=== PATIENT | female | born 1975 | race Caucasian/White ===

== ENCOUNTER 2017-04-13 14:28 | Emergency (ER) | payer MEDICAID, OTHER ==
[2017-04-13 14:50] VITALS: BMI 28.2
[2017-04-13 14:53] VITALS: RESP 18; TEMP 98.2; O2SAT 100
--- NOTE | 2017-04-13 15:00 | ED PDOC ---
Arrival/HPI - General Chief Complaint: Anxiety Time Seen by Provider: 04/13/17 14:38 Historian: Patient - History of Present Illness Narrative History of Present Illness (Text): 04/13/17 14:57 Christelle Prakash is a 41 year old female, whose past medical history include kidney stone and hypothyroidism, depression, who presents to the ED accompanied by family complaining of shortness of breath and chest pain since 8 am this morning. Patient stated she woke up this morning thinking about her , and became sad, tearful. She later developed shortness of breath and chest pressure pain. Patient admits feeling depressed since the of last year. PERC negative for PE. Quality: Pressure Context: Home Past Medical History - Provider Review Nursing Documentation Reviewed: Yes - Infectious Disease Hx of Infectious Diseases: None - Tetanus Immunization Tetanus Immunization: Unknown - Past Medical History Past Medical History: No Previous - Cardiac Hx Cardiac Disorders: No - Pulmonary Hx Respiratory Disorders: No - Neurological Hx Neurological Disorder: No - HEENT Hx HEENT Disorder: No - Renal Hx Renal Disorder: Yes (RENAL COLIC) Hx Kidney Stones: Yes - Endocrine/Metabolic Hx Endocrine Disorders: Yes Hx Hypothyroidism: Yes (TOTAL THYROIDECTOMY) - Hematological/Oncological Hx Blood Disorders: No - Integumentary Hx Dermatological Disorder: No - Musculoskeletal/Rheumatological Hx Musculoskeletal Disorders: No Hx Falls: No - Gastrointestinal Hx Gastrointestinal Disorders: Yes (SIGMOID DIVERTICULITIS 03-29-16) Hx Gastroesophageal Reflux: Yes Other/Comment: CONSTIPATION - Genitourinary/Gynecological Hx Genitourinary Disorders: Yes (CHRONIC VAGINAL DISCHARGE) - Psychiatric Hx Psychophysiologic Disorder: No Hx Substance Use: No - Surgical History Hx Appendectomy: Yes - Anesthesia Hx Anesthesia: Yes Hx Anesthesia Reactions: No Hx Malignant Hyperthermia: No - Suicidal Assessment Feels Threatened In Home Enviroment: No Family/Social History - Physician Review Nursing Documentation Reviewed: Yes Family/Social History: Other (non-contributory) Smoking Status: Never Smoked Hx Alcohol Use: No Hx Substance Use: No Hx Substance Use Treatment: No Allergies/Home Meds Allergies/Adverse Reactions: Allergies No Known Allergies Allergy (Verified 03/29/16 11:56) Home Medications: Home Meds Medication Instructions Recorded Confirmed Levothyroxine [Synthroid] 175 mcg PO DAILY 07/26/15 04/13/17 Review of Systems - Review of Systems Constitutional: Normal. absent: Fatigue, Weight Change, Fevers Eyes: Normal ENT: Normal Respiratory: SOB. absent: Cough, Sputum, Wheezing Cardiovascular: Normal, Chest Pain. absent: Palpitations, Edema, Calf Pain Gastrointestinal: Normal. absent: Abdominal Pain, Nausea, Vomiting Genitourinary Female: Normal. absent: Dysuria, Frequency, Hematuria Musculoskeletal: Normal Skin: Normal Neurological: Normal. absent: Headache, Dizziness Endocrine: Normal Hemo/Lymphatic: Normal Psychiatric: Anxiety, Depression, Other (denies HI, hallucination, or paranoia) . absent: Suicidal Ideation Physical Exam Vital Signs Temp Pulse Resp BP Pulse Ox 04/13/17 14:51 98.2 F 75 18 144/89 100 Temperature: Afebrile Blood Pressure: Normal Pulse: Regular Respiratory Rate: Normal Appearance: Positive for: Well-Appearing, Non-Toxic, Comfortable Pain Distress: None Mental Status: Positive for: Alert and Oriented X 3 - Systems Exam Head: Present: Atraumatic, Normocephalic Pupils: Present: PERRL Extroacular Muscles: Present: EOMI Conjunctiva: Present: Normal Mouth: Present: Moist Mucous Membranes Neck: Present: Normal Range of Motion Respiratory/Chest: Present: Clear to Auscultation, Good Air Exchange. No: Respiratory Distress, Accessory Muscle Use Cardiovascular: Present: Regular Rate and Rhythm, Normal S1, S2. No: Murmurs Abdomen: Present: Normal Bowel Sounds. No: Tenderness, Distention, Peritoneal Signs Back: Present: Normal Inspection Upper Extremity: Present: Normal Inspection, Normal ROM, NORMAL PULSES, Neurovascularly Intact, Capillary Refill < 2s. No: Cyanosis, Edema Lower Extremity: Present: Normal Inspection, NORMAL PULSES, Normal ROM, Neurovascularly Intact, Capillary Refill < 2 s. No: Edema Neurological: Present: GCS=15, CN II-XII Intact, Speech Normal, Motor Func Grossly Intact, Normal Sensory Function, Normal Cerebellar Funct, Gait Normal, Memory Normal Skin: Present: Warm, Dry, Normal Color. No: Rashes Psychiatric: Present: Alert, Oriented x 3, Depressed Mood. No: Suicidal Ideation, Homicidal Ideation, Delusional, Hallucinations, Intoxicated Medical Decision Making ED Course and Treatment: 04/13/17 16:51 Patient refused to be evaluated by Psychiatrist. Patient denies SI, or HI. Patient wishes to be discharged home. Family member at at bedside. Re-evaluation. Patient feels better. Discussed results and plan with patient who expresses understanding. All questions answered and there is agreement with the plan to discharge home with instructions. Patient stable for discharge. Return if symptoms persist or worsen. Patient was [facility] to [facility] for her feeling of sadness. Re-evaluation Time: 16:54 Reassessment Condition: Re-examined, Improved - Lab Interpretations Lab Results: 04/13/17 15:25 04/13/17 15:25 Lab Results 04/13/17 16:00: Urine Color Straw, Urine Appearance Sl cloudy, Urine pH 7.5, Ur Specific [place] 1.010, Urine Protein Negative, Urine Glucose (UA) Negative, Urine Ketones Negative, Urine Blood Trace-lysed H, Urine Nitrate Negative, Urine Bilirubin Negative, Urine Urobilinogen 0.2, Ur Leukocyte Esterase Moderate H, Urine RBC 0 - 2, Urine WBC 10 - 15, Ur Epithelial Cells 6 - 8, Urine Bacteria Mod, Urine HCG, Qual Negative 04/13/17 15:25: Alcohol, Quantitative < 10 04/13/17 15:25: Salicylates < 1 L, Acetaminophen < 10.0 L 04/13/17 15:25: Sodium 142, Potassium 4.5, Chloride 108 H, Carbon Dioxide 20 L, Anion Gap 19, BUN 10, Creatinine 0.7, Est GFR ( Amer) > 60, Est GFR (Non- Af Amer) > 60, Random Glucose 90, Calcium 9.3, Magnesium 2.1, Total Bilirubin 0.4, AST 24, ALT 29, Alkaline Phosphatase 100, Total Protein 8.0, Albumin 4.7, Globulin 3.4, Albumin/Globulin Ratio 1.4 04/13/17 15:25: WBC 6.5 D, RBC 4.73, Hgb 12.7, Hct 37.7, MCV 79.7 L, MCH 26.8, MCHC 33.7, RDW 14.5, Plt Count 244, MPV 9.1, Gran % 28.2 L, Lymph % (Auto) 62.7 H, [place] % (Auto) 6.5 H, Eos % (Auto) 1.4 L, Baso % (Auto) 1.2, Gran # 1.84, Lymph # 4.1 H, [place] # 0.4, Eos # 0.1, Baso # 0.08 I have reviewed the lab results: Yes Interpretation: Abnormal lab values (acute cystitis) - RAD Interpretation Narrative RAD Interpretations (Text): 04/13/17 16:43 Chest x-rays: NAD Radiology Orders: 04/13/17 15:02 CHEST PORTABLE [RAD] Stat - EKG Interpretation Interpreted by ED Physician: Yes (NSR @ 68 bpm. Normal interval) Type: 12 lead EKG Comparison: No previous EKG avail. - Medication Orders Current Medication Orders: Discontinued Medications Alprazolam (Xanax) 0.5 mg PO STAT STA PRN Reason: Protocol Stop: 04/13/17 15:04 Last Admin: 04/13/17 15:56 Dose: 0.5 mg Disposition/Present on Arrival - Present on Arrival Any Indicators Present on Arrival: No History of DVT/PE: No History of Uncontrolled Diabetes: No Urinary Catheter: No History of Decub. Ulcer: No History Surgical Site Infection Following: None - Disposition Have Diagnosis and Disposition been Completed?: Yes Diagnosis: Cystitis, Shortness of breath, Non-cardiac chest pain, Feeling anxious Disposition: HOME/ ROUTINE Disposition Time: 16:56 Patient Plan: Discharge Condition: GOOD Discharge Instructions (ExitCare): Chest Pain (ED) Additional Instructions: Call clinics for follow up visit in 1-2 days. Take medication as instructed. Return to emergency if symptoms worsen. Prescriptions: Cephalexin [cephalexin] 500 mg PO BID #14 cap Referrals: Gonsalo Denise MD [Primary Care Provider] - Follow up with primary [facility] [Outside] - Follow up with primary [facility] [Outside] - Follow up with primary Forms: [employer] (Austrian)
[2017-04-13 15:43] LABS: BASO # 0.08 K/mm3 (0.0-2.0); BASO % 1.2 % (0.0-3.0); EOS # 0.1 (0.0-0.7); EOS % 1.4 % (1.5-5.0); GRAN # 1.84 (1.4-6.5); GRAN % 28.2 % (50.0-68.0); HEMATOCRIT 37.7 % (36.0-48.0); LYMPH # 4.1 (1.2-3.4); LYMPH % 62.7 % (22.0-35.0); MEAN CELL VOLUME 79.7 fl (80.0-105.0); MEAN CORPUSCULAR HEMOGLOBIN 26.8 pg (25.0-35.0); MEAN CORPUSCULAR HGB CONC 33.7 g/dl (31.0-37.0); MEAN PLATELET VOLUME 9.1 fl (7.0-11.0); MONO # 0.4 (0.1-0.6); MONO % 6.5 % (1.0-6.0); RED CELL DISTRIBUTION WIDTH 14.5 % (11.5-14.5); WHITE BLOOD COUNT 6.5 10^3/ul (4.5-11.0)
[2017-04-13 15:52] LABS: ALB/GLOB RATIO 1.4 (1.1-1.8); ALKALINE PHOSPHATASE 100 U/L (38-126); ALT/SGPT 29 U/L (7-56); AST/SGOT 24 U/L (14-36); BILIRUBIN,TOTAL 0.4 mg/dL (0.2-1.3); BLOOD UREA NITROGEN 10 mg/dL (7-21); CALCIUM 9.3 mg/dL (8.4-10.5); CARBON DIOXIDE 20 mmol/L (21-33); CHLORIDE 108 mmol/L (98-107); GFR AFRICAN-AMERICAN > 60; GLUCOSE,RANDOM 90 mg/dL (70-110); MAGNESIUM 2.1 mg/dL (1.7-2.2); POTASSIUM 4.5 mmol/L (3.6-5.0); SODIUM 142 mmol/L (132-148)
[2017-04-13 16:09] LABS: PH,URINE 7.5 (4.7-8.0); URINE BILIRUBIN NEGATIVE (NEGATIVE); URINE BLOOD TRACE-LYSED (NEGATIVE); URINE GLUCOSE (UA) NEGATIVE (NEGATIVE); URINE KETONE NEGATIVE (NEGATIVE); URINE LEUKOCYTE ESTERASE MODERATE Leu/uL (NEGATIVE); URINE PROTEIN NEGATIVE mg/dL (<30 mg/dL); URINE UROBILINOGEN 0.2 E.U./dL (<1 E.U./dL)
[2017-04-13 16:15] LABS: URINE APPEARANCE SL CLOUDY (CLEAR); URINE COLOR STRAW (YELLOW)
[2017-04-13 16:28] LABS: URINE BACTERIA MOD (NEG); URINE RBC 0 - 2 /hpf (0-2)
--- NOTE | 2017-04-13 17:12 | RAD ---
HISTORY: SOB COMPARISON: No prior. FINDINGS: LUNGS: No active pulmonary disease. PLEURA: No significant pleural effusion identified, no pneumothorax apparent. CARDIOVASCULAR: Normal. OSSEOUS STRUCTURES: No significant abnormalities. VISUALIZED UPPER ABDOMEN: Normal. OTHER FINDINGS: None. IMPRESSION: No acute infiltrates.
[2017-04-13 17:16] VITALS: BP 128/86; PULSE 69
--- NOTE | 2017-04-14 08:42 | CARD ---
APPROVED REPORT EKG Measurement Heart [id number] <Conclusion> Normal sinus rhythm with sinus arrhythmia Normal ECG
== END 2017-04-13 18:01 | disposition home or self-care (01) ==
LOC: ED 14:28
DX: N30.90 Cystitis, unspecified without hematuria (principal); R06.02 Shortness of breath; R07.89 Other chest pain; R45.89 Other symptoms and signs involving emotional state

== ENCOUNTER 2017-07-25 10:29 | Emergency (ER) | payer MEDICAID ==
[2017-07-25 10:39] VITALS: BMI 30.9
[2017-07-25 10:50] VITALS: RESP 18; TEMP 99
[2017-07-25] MEDS ORDERED: Sodium Chloride 0.9% 1,000 ML IV STA (10:57)
[2017-07-25 11:52] LABS: BASO # 0.01 K/mm3 (0.0-2.0); BASO % 0.4 % (0.0-3.0); EOS % 0.4 % (1.5-5.0); GRAN # 1.03 (1.4-6.5); GRAN % 37.5 % (50.0-68.0); HEMATOCRIT 36.5 % (36.0-48.0); LYMPH # 1.3 (1.2-3.4); LYMPH % 47.8 % (22.0-35.0); MEAN CELL VOLUME 79.5 fl (80.0-105.0); MEAN CORPUSCULAR HEMOGLOBIN 25.9 pg (25.0-35.0); MEAN CORPUSCULAR HGB CONC 32.6 g/dl (31.0-37.0); MEAN PLATELET VOLUME 9.7 fl (7.0-11.0); MONO # 0.4 (0.1-0.6); MONO % 13.9 % (1.0-6.0); PH,URINE 5.5 (4.7-8.0); RED CELL DISTRIBUTION WIDTH 14.1 % (11.5-14.5); URINE BILIRUBIN SMALL (NEGATIVE); URINE BLOOD LARGE (NEGATIVE); URINE GLUCOSE (UA) NEGATIVE (NEGATIVE); URINE KETONE NEGATIVE (NEGATIVE); URINE LEUKOCYTE ESTERASE TRACE Leu/uL (NEGATIVE); URINE PROTEIN 30 mg/dL (<30 mg/dL); URINE UROBILINOGEN 0.2 E.U./dL (<1 E.U./dL)
[2017-07-25 11:54] LABS: WHITE BLOOD COUNT 2.7 10^3/ul (4.5-11.0)
[2017-07-25 11:55] LABS: URINE APPEARANCE CLEAR (CLEAR); URINE COLOR YELLOW (YELLOW)
--- NOTE | 2017-07-25 11:55 | ED PDOC ---
Arrival/HPI - General Chief Complaint: Flu-like Symptoms Time Seen by Provider: 07/25/17 10:55 Historian: Patient - History of Present Illness Narrative History of Present Illness (Text): 07/25/17 10:54 A 42 year old female, whose past medical history includes thyroid disease and vertigo, Bengali speaking translated by patient's sister, presents to the emergency department complaining of dizziness and vomiting all night. Patient reports 3-5 episodes of vomiting, as well as 4 episodes of diarrhea. Patient mentions dizziness worsens when turning head. States also experiencing fever yesterday but did not take temperature, and had chills. Patient denies any abdominal pain(although upon palpation, patient experiences slight pain), vision changes, or any other complaints at this time. Also, she does states that her daughter has a stomach virus. No PMD 07/25/17 12:20 Past Medical History - Provider Review Nursing Documentation Reviewed: Yes - Infectious Disease Hx of Infectious Diseases: None - Tetanus Immunization Tetanus Immunization: Unknown - Past Medical History Past Medical History: No Previous - Cardiac Hx Cardiac Disorders: No - Pulmonary Hx Respiratory Disorders: No - Neurological Hx Neurological Disorder: No - HEENT Hx HEENT Disorder: No - Renal Hx Renal Disorder: Yes (RENAL COLIC) Hx Kidney Stones: Yes - Endocrine/Metabolic Hx Endocrine Disorders: Yes Hx Hypothyroidism: Yes (TOTAL THYROIDECTOMY) - Hematological/Oncological Hx Blood Disorders: No - Integumentary Hx Dermatological Disorder: No - Musculoskeletal/Rheumatological Hx Musculoskeletal Disorders: No Hx Falls: No - Gastrointestinal Hx Gastrointestinal Disorders: Yes (SIGMOID DIVERTICULITIS 03-29-16) Hx Gastroesophageal Reflux: Yes Other/Comment: CONSTIPATION - Genitourinary/Gynecological Hx Genitourinary Disorders: Yes (CHRONIC VAGINAL DISCHARGE) - Psychiatric Hx Psychophysiologic Disorder: No Hx Substance Use: No - Surgical History Hx Appendectomy: Yes Hx Section: Yes Hx Thyroidectomy: Yes - Anesthesia Hx Anesthesia: Yes Hx Anesthesia Reactions: No Hx Malignant Hyperthermia: No - Suicidal Assessment Feels Threatened In Home Enviroment: No Family/Social History - Physician Review Nursing Documentation Reviewed: Yes Family/Social History: No Known Family HX Smoking Status: Never Smoked Hx Alcohol Use: No Hx Substance Use: No Hx Substance Use Treatment: No Allergies/Home Meds Allergies/Adverse Reactions: Allergies No Known Allergies Allergy (Verified 07/25/17 10:45) Home Medications: Home Meds Medication Instructions Recorded Confirmed Levothyroxine [Synthroid] 175 mcg PO DAILY 07/26/15 07/25/17 Topiramate 25 mg PO BID 06/08/17 07/25/17 Tramadol HCl [Ultram] 50 mg PO PRN PRN 06/08/17 07/25/17 Review of Systems - Physician Review All systems were reviewed & negative as marked: Yes - Review of Systems Constitutional: Fatigue, Fevers (had fever yesterday) Eyes: absent: Vision Changes Gastrointestinal: Diarrhea (4 episodes of diarrhea), Vomiting (3-5 episodes of vomiting). absent: Abdominal Pain Neurological: Dizziness Physical Exam Vital Signs Reviewed: Yes Vital Signs Temp Pulse Resp BP Pulse Ox 07/25/17 10:49 99.0 F 80 18 123/80 100 Temperature: Afebrile Blood Pressure: Normal Pulse: Regular Respiratory Rate: Normal Appearance: Positive for: Well-Appearing Pain Distress: None Mental Status: Positive for: Alert and Oriented X 3 - Systems Exam Head: Present: Atraumatic, Normocephalic Pupils: Present: PERRL Extroacular Muscles: Present: EOMI Conjunctiva: Present: Normal Mouth: Present: Moist Mucous Membranes Neck: Present: Normal Range of Motion Respiratory/Chest: Present: Clear to Auscultation, Good Air Exchange. No: Respiratory Distress, Accessory Muscle Use Cardiovascular: Present: Regular Rate and Rhythm, Normal S1, S2. No: Murmurs Abdomen: Present: Other (mild diffused abdominal pain to epigastric and RUQ region). No: Distention, Rebound, Guarding Back: Present: Normal Inspection Upper Extremity: Present: Normal Inspection. No: Cyanosis, Edema Lower Extremity: Present: Normal Inspection. No: Edema Neurological: Present: GCS=15, CN II-XII Intact, Speech Normal Skin: Present: Warm, Dry, Normal Color. No: Rashes Psychiatric: Present: Alert, Oriented x 3, Normal Insight, Normal Concentration Medical Decision Making ED Course and Treatment: 07/25/17 10:59 Impression: 42 year old female with dizziness and vomiting. Physical exam shows patient appears fatigue, non-nystagmus; moist mucous membranes; mild diffused abdominal pain to epigastric and RUQ region, no rebound, no guarding, non- distended. Differential Diagnosis included but are not limited to: Gastroenteritis exacerbated by history of vertigo vs. Electrolyte Abnormalities vs. Food Poisoning. Plan: -- Labs -- Urinalysis -- Ativan -- Zofran -- IV Fluids -- Reassess and disposition Prior Visits: Notes and results from previous visits were reviewed. Patient was last seen in the emergency department on 04/13/2017 for shortness of breath and chest pain. Patient was d/c home. Progress Notes: pt received IV fluids, antiemetics, now tolerating PO. Mag repleted will d/c 07/25/17 12:42 - Lab Interpretations Lab Results: 07/25/17 11:35 07/25/17 11:58 Lab Results 07/25/17 11:58: Sodium 139, Potassium 3.9, Chloride 109 H, Carbon Dioxide 21, Anion Gap 13, BUN 9, Creatinine 0.7, Est GFR ( Amer) > 60, Est GFR (Non- Af Amer) > 60, Random Glucose 91, Calcium 8.3 L, Magnesium 1.6 L, Total Bilirubin 0.4, AST 17, ALT 26, Alkaline Phosphatase 68, Total Protein 6.6, Albumin 3.7, Globulin 2.9, Albumin/Globulin Ratio 1.3 07/25/17 11:35: Urine Color Yellow, Urine Appearance Clear, Urine pH 5.5, Ur Specific [place] >= 1.030, Urine Protein 30 H, Urine Glucose (UA) Negative, Urine Ketones Negative, Urine Blood Large H, Urine Nitrate Negative, Urine Bilirubin Small H, Urine Urobilinogen 0.2, Ur Leukocyte Esterase Trace H, Urine RBC Tntc, Urine WBC 2 - 5, Ur Epithelial Cells 6 - 8, Amorphous Sediment Few, Urine Bacteria Many 07/25/17 11:35: WBC 2.7 L* D, RBC 4.59, Hgb 11.9 L, Hct 36.5, MCV 79.5 L, MCH 25.9, MCHC 32.6, RDW 14.1, Plt Count 175, MPV 9.7, Gran % 37.5 L, Lymph % (Auto ) 47.8 H, [place] % (Auto) 13.9 H, Eos % (Auto) 0.4 L, Baso % (Auto) 0.4, Gran # 1.03 L, Lymph # 1.3, [place] # 0.4, Eos # 0.0, Baso # 0.01 I have reviewed the lab results: Yes - Medication Orders Current Medication Orders: Discontinued Medications Sodium Chloride (Sodium Chloride 0.9%) 1,000 mls @ 999 mls/hr IV .Q1H1M STA Stop: 07/25/17 11:57 Last Admin: 07/25/17 12:17 Dose: 999 mls/hr eMAR Start Stop Document 07/25/17 12:17 EQ (Rec: 07/25/17 12:17 EQ [facility] [id number]) Intravenous Solution Start Date 07/25/17 Start Time 12:17 Lorazepam (Ativan) 0.5 mg IVP ONCE ONE PRN Reason: Protocol Stop: 07/25/17 11:10 Last Admin: 07/25/17 12:17 Dose: 0.5 mg IVP Administration Document 07/25/17 12:17 EQ (Rec: 07/25/17 12:18 EQ [facility] [id number]) Charges for Administration # of IVP Administrations 1 Magnesium Oxide (Mag-Ox) 800 mg PO STAT STA Stop: 07/25/17 12:38 Ondansetron HCl (Zofran Inj) 4 mg IVP STAT STA Stop: 07/25/17 10:58 Last Admin: 07/25/17 12:17 Dose: 4 mg IVP Administration Document 07/25/17 12:17 EQ (Rec: 07/25/17 12:17 EQ [facility] [id number]) Charges for Administration # of IVP Administrations 1 - Scribe Statement The provider has reviewed the documentation as recorded by the Yanira Valencia Provider Scribe Attestation: All medical record entries made by the Jackibdenise were at my direction and personally dictated by me. I have reviewed the chart and agree that the record accurately reflects my personal performance of the history, physical exam, medical decision making, and the department course for this patient. I have also personally directed, reviewed, and agree with the discharge instructions and disposition. Disposition/Present on Arrival - Present on Arrival Any Indicators Present on Arrival: No History of DVT/PE: No History of Uncontrolled Diabetes: No Urinary Catheter: No History of Decub. Ulcer: No History Surgical Site Infection Following: None - Disposition Have Diagnosis and Disposition been Completed?: Yes Diagnosis: Gastroenteritis Disposition: HOME/ ROUTINE Disposition Time: 12:42 Patient Plan: Discharge Patient Problems: Current Active Problems Problem Status Onset Gastroenteritis Acute Condition: GOOD Discharge Instructions (ExitCare): Gastroenteritis (ED) Prescriptions: Loperamide [Loperamide HCl] 2 mg PO Q8 #14 cap Ondansetron [Zofran] 4 mg PO Q8H PRN #12 tab PRN Reason: Nausea/Vomiting Forms: [employer] (Vietnamese)
[2017-07-25 11:58] LABS: URINE BACTERIA MANY (NEG); URINE RBC TNTC /hpf (0-2)
[2017-07-25 12:00] LABS: URINE AMORPHOUS SEDIMENT FEW
[2017-07-25 12:33] LABS: ALB/GLOB RATIO 1.3 (1.1-1.8); ALKALINE PHOSPHATASE 68 U/L (38-126); ALT/SGPT 26 U/L (7-56); AST/SGOT 17 U/L (14-36); BILIRUBIN,TOTAL 0.4 mg/dL (0.2-1.3); BLOOD UREA NITROGEN 9 mg/dL (7-21); CALCIUM 8.3 mg/dL (8.4-10.5); CARBON DIOXIDE 21 mmol/L (21-33); CHLORIDE 109 mmol/L (98-107); GFR AFRICAN-AMERICAN > 60; GLUCOSE,RANDOM 91 mg/dL (70-110); MAGNESIUM 1.6 mg/dL (1.7-2.2); POTASSIUM 3.9 mmol/L (3.6-5.0); SODIUM 139 mmol/L (132-148); TOTAL PROTEIN 6.6 g/dL (5.8-8.3)
[2017-07-25] MEDS ORDERED: Magnesium Oxide 400 mg Tab UD PO STA (12:37)
[2017-07-25 13:12] VITALS: BP 117/78; PULSE 79; O2SAT 98
== END 2017-07-25 13:15 | disposition home or self-care (01) ==
LOC: ED 10:29
DX: K52.9 Noninfective gastroenteritis and colitis, unspecified (principal); E03.9 Hypothyroidism, unspecified
CPT/HCPCS: 80053; 81001; 83735; 85025; 87086; 96374; 96375; 99284; J2060; J2405; J7040

== ENCOUNTER 2017-09-20 14:25 | Emergency (ER) | payer MEDICAID ==
[2017-09-20 14:26] VITALS: BMI 30.9
[2017-09-20 14:34] VITALS: TEMP 98.8; O2SAT 99
[2017-09-20 16:26] VITALS: RESP 18
[2017-09-20 16:36] LABS: BASO # 0.04 K/mm3 (0.0-2.0); BASO % 0.7 % (0.0-3.0); EOS # 0.1 (0.0-0.7); EOS % 1.3 % (1.5-5.0); GRAN % 36.5 % (50.0-68.0); HEMOGLOBIN 11.7 g/dL (12.0-16.0); LYMPH % 54.6 % (22.0-35.0); MEAN CELL VOLUME 79.7 fl (80.0-105.0); MEAN CORPUSCULAR HEMOGLOBIN 25.8 pg (25.0-35.0); MEAN CORPUSCULAR HGB CONC 32.3 g/dl (31.0-37.0); MEAN PLATELET VOLUME 9.2 fl (7.0-11.0); MONO # 0.4 (0.1-0.6); MONO % 6.9 % (1.0-6.0); RBC 4.54 10^6/uL (3.5-6.1); RED CELL DISTRIBUTION WIDTH 15.1 % (11.5-14.5); WHITE BLOOD COUNT 5.5 10^3/ul (4.5-11.0)
[2017-09-20 16:45] LABS: ALB/GLOB RATIO 1.3 (1.1-1.8); ALBUMIN 4.2 g/dL (3.0-4.8); ALT/SGPT 18 U/L (7-56); AST/SGOT 26 U/L (14-36); BLOOD UREA NITROGEN 8 mg/dL (7-21); CALCIUM 8.9 mg/dL (8.4-10.5); GFR AFRICAN-AMERICAN > 60; GFR NON-AFRICAN AMERICAN > 60; MAGNESIUM 2.2 mg/dL (1.7-2.2)
[2017-09-20 16:56] LABS: TROPONIN I < 0.01 ng/mL
[2017-09-20] MEDS ORDERED: DiphenhydrAMINE 50 mg/ml Inj IVP STA (16:58)
[2017-09-20 17:09] LABS: D DIMER < 200 ng/mL (0-243); INR 0.96 (0.93-1.08); PARTIAL THROMBOPLASTIN TIME 29.9 Seconds (25.1-36.5); PROTHROMBIN TIME 10.9 SECONDS (9.4-12.5)
--- NOTE | 2017-09-20 17:48 | ED PDOC ---
Arrival/HPI - General Chief Complaint: Headache Time Seen by Provider: 09/20/17 14:45 Historian: Patient - History of Present Illness Narrative History of Present Illness (Text): 09/20/17 17:44 42yo female with PMHx of hypothyroid who present with complaint of headache and chest pain. Patient states symptoms are intermittent for 6 months. States headache became worse today. Chest pain is intermittent, pressure like. States she have not taken any medication for her symptoms. Denies fever, chills, SOB, diaphoresis, dizziness, photophobia, visual changes, nausea, vomiting, focal weakness, any other complaint. Past Medical History - Provider Review Nursing Documentation Reviewed: Yes - Infectious Disease Hx of Infectious Diseases: None - Tetanus Immunization Tetanus Immunization: Unknown - Past Medical History Past Medical History: No Previous - Cardiac Hx Cardiac Disorders: No - Pulmonary Hx Respiratory Disorders: No - Neurological Hx Neurological Disorder: Yes Hx Headaches: Yes - HEENT Hx HEENT Disorder: No - Renal Hx Renal Disorder: Yes (RENAL COLIC) Hx Kidney Stones: Yes - Endocrine/Metabolic Hx Endocrine Disorders: Yes Hx Hypothyroidism: Yes (TOTAL THYROIDECTOMY) - Hematological/Oncological Hx Blood Disorders: No - Integumentary Hx Dermatological Disorder: No - Musculoskeletal/Rheumatological Hx Musculoskeletal Disorders: No Hx Falls: No - Gastrointestinal Hx Gastrointestinal Disorders: Yes (SIGMOID DIVERTICULITIS 03-29-16) Hx Gastroesophageal Reflux: Yes Other/Comment: CONSTIPATION - Genitourinary/Gynecological Hx Genitourinary Disorders: Yes (CHRONIC VAGINAL DISCHARGE) - Psychiatric Hx Psychophysiologic Disorder: No Hx Substance Use: No - Surgical History Hx Appendectomy: Yes Hx Section: Yes Hx Thyroidectomy: Yes - Anesthesia Hx Anesthesia: Yes Hx Anesthesia Reactions: No Hx Malignant Hyperthermia: No - Suicidal Assessment Feels Threatened In Home Enviroment: No Family/Social History - Physician Review Nursing Documentation Reviewed: Yes Family/Social History: Unknown Family HX Smoking Status: Never Smoked Hx Alcohol Use: No Hx Substance Use: No Hx Substance Use Treatment: No Allergies/Home Meds Allergies/Adverse Reactions: Allergies No Known Allergies Allergy (Verified 09/20/17 14:28) Home Medications: Home Meds Medication Instructions Recorded Confirmed Levothyroxine [Synthroid] 175 mcg PO DAILY 07/26/15 09/20/17 Tramadol HCl [Ultram] 50 mg PO PRN PRN 06/08/17 09/20/17 Review of Systems - Physician Review All systems were reviewed & negative as marked: Yes - Review of Systems Constitutional: Normal Eyes: Normal ENT: Normal Respiratory: Normal Cardiovascular: Chest Pain. absent: Edema, Calf Pain, BORJA, Orthopnea Gastrointestinal: Normal Genitourinary Female: Normal Musculoskeletal: Normal Skin: Normal Neurological: Normal, Headache. absent: Dizziness, Focal Weakness, Gait Changes , Speech Changes, Facial Droop Endocrine: Normal Hemo/Lymphatic: Normal Psychiatric: Normal Physical Exam Vital Signs Reviewed: Yes Vital Signs Temp Pulse Resp BP Pulse Ox 09/20/17 18:04 75 18 142/71 99 09/20/17 16:26 86 18 146/85 99 09/20/17 14:33 98.8 F 94 H 16 159/78 H 99 Temperature: Afebrile Blood Pressure: Normal Pulse: Regular Respiratory Rate: Normal Appearance: Positive for: Well-Appearing, Non-Toxic, Comfortable Pain Distress: None Mental Status: Positive for: Alert and Oriented X 3 - Systems Exam Head: Present: Atraumatic, Normocephalic Pupils: Present: PERRL Extroacular Muscles: Present: EOMI Conjunctiva: Present: Normal Mouth: Present: Moist Mucous Membranes Neck: Present: Normal Range of Motion Respiratory/Chest: Present: Clear to Auscultation, Good Air Exchange. No: Respiratory Distress, Accessory Muscle Use, Wheezes, Decreased Breath Sounds, Rales, Retracting, Rhonchi, Tachypneic Cardiovascular: Present: Regular Rate and Rhythm, Normal S1, S2. No: Murmurs Abdomen: Present: Normal Bowel Sounds. No: Tenderness, Distention, Peritoneal Signs Back: Present: Normal Inspection Upper Extremity: Present: Normal Inspection. No: Cyanosis, Edema Lower Extremity: Present: Normal Inspection. No: Edema Neurological: Present: GCS=15, CN II-XII Intact, Speech Normal, Motor Func Grossly Intact, Normal Sensory Function, Normal Cerebellar Funct, Norm Deep Tendon Reflexes, Gait Normal, Memory Normal, Normal 2Pt Descrimination, Other ( No focal neurological deficit) Skin: Present: Warm, Dry, Normal Color. No: Rashes Psychiatric: Present: Alert, Oriented x 3, Normal Insight, Normal Concentration Medical Decision Making ED Course and Treatment: 09/20/17 20:26 PT was neurologically intact in ED. Hemodynamically stable EKG NSR @87bpm Lab was unremarkable. She had UTI and was treated with Keflex Head CT - Negative All result was DW the pt. Her headache and CP resolved in ED with medication. She was DC home with Fioricet. Referred to her PMD/Cardiologists. - Lab Interpretations Lab Results: 09/20/17 16:10 09/20/17 16:10 Lab Results 09/20/17 17:50: Urine Color Yellow, Urine Appearance Turbid, Urine pH 7.5, Ur Specific [place] 1.015, Urine Protein Trace H, Urine Glucose (UA) Negative, Urine Ketones Negative, Urine Blood Small H, Urine Nitrate Negative, Urine Bilirubin Negative, Urine Urobilinogen 0.2, Ur Leukocyte Esterase Large H, Urine RBC 1 - 3, Urine WBC 5 - 10, Ur Epithelial Cells 4 - 5, Urine Bacteria Many 09/20/17 16:10: Sodium 143, Potassium 4.0, Chloride 107, Carbon Dioxide 25, Anion Gap 14, BUN 8, Creatinine 0.7, Est GFR ( Amer) > 60, Est GFR (Non- Af Amer) > 60, Random Glucose 88, Calcium 8.9, Magnesium 2.2, Total Bilirubin 0.3, AST 26, ALT 18, Alkaline Phosphatase 93, Lactate Dehydrogenase 401, Total Creatine Kinase 80, Troponin I < 0.01, Total Protein 7.5, Albumin 4.2, Globulin 3.2, Albumin/Globulin Ratio 1.3 09/20/17 16:10: PT 10.9, INR 0.96, APTT 29.9, D-Dimer, Quantitative < 200 09/20/17 16:10: WBC 5.5 D, RBC 4.54, Hgb 11.7 L, Hct 36.2, MCV 79.7 L, MCH 25.8 , MCHC 32.3, RDW 15.1 H, Plt Count 231, MPV 9.2, Gran % 36.5 L, Lymph % (Auto) 54.6 H, Saunders % (Auto) 6.9 H, Eos % (Auto) 1.3 L, Baso % (Auto) 0.7, Gran # 2.00 , Lymph # (Auto) 3.0, Saunders # (Auto) 0.4, Eos # (Auto) 0.1, Baso # (Auto) 0.04 - RAD Interpretation Radiology Orders: 09/20/17 16:57 HEAD W/O CONTRAST [CT] Stat - Medication Orders Current Medication Orders: Discontinued Medications Cephalexin Monohydrate (Keflex) 500 mg PO STAT STA PRN Reason: Protocol Stop: 09/20/17 18:26 Last Admin: 09/20/17 19:09 Dose: 500 mg Diphenhydramine HCl (Benadryl) 25 mg IVP STAT STA Stop: 09/20/17 16:59 Last Admin: 09/20/17 17:23 Dose: 25 mg IVP Administration Document 09/20/17 17:23 OCS (Rec: 09/20/17 17:23 [place] [id number]) Charges for Administration # of IVP Administrations 1 Ketorolac Tromethamine (Toradol) 30 mg IVP STAT STA Stop: 09/20/17 16:59 Last Admin: 09/20/17 17:22 Dose: 30 mg MAR Pain Assessment Document 09/20/17 17:22 OCS (Rec: 09/20/17 17:23 [place] [id number]) Pain Reassessment Is this a pain reassessment? Yes Sleep Is patient sleeping during reassessment? No Presence of Pain Presence of Pain Yes Pain Scale Used Pain Scale Used Numeric Location Pain Location Body Sole Edge Inker Machine Description Description Constant Aggravating Factors ADL's IVP Administration Document 09/20/17 17:22 OCS (Rec: 09/20/17 17:23 [place] [id number]) Charges for Administration # of IVP Administrations 1 Metoclopramide HCl (Reglan) 10 mg IVP STAT STA Stop: 09/20/17 16:59 Last Admin: 09/20/17 17:23 Dose: 10 mg IVP Administration Document 09/20/17 17:23 OCS (Rec: 09/20/17 17:23 [place] [id number]) Charges for Administration # of IVP Administrations 1 Disposition/Present on Arrival - Present on Arrival Any Indicators Present on Arrival: No History of DVT/PE: No History of Uncontrolled Diabetes: No Urinary Catheter: No History of Decub. Ulcer: No History Surgical Site Infection Following: None - Disposition Have Diagnosis and Disposition been Completed?: Yes Diagnosis: Headache, Chest pain, UTI (urinary tract infection) Disposition: HOME/ ROUTINE Disposition Time: 18:50 Patient Plan: Discharge Patient Problems: Current Active Problems Problem Status Onset Chest pain Acute Headache Acute UTI (urinary tract infection) Acute Condition: STABLE Discharge Instructions (ExitCare): Urinary Tract Infections in Adults, Headache , Adult, Chest Pain, Chest Pain (ED) Additional Instructions: Follow up with your doctor/Silk Weaver Return to ED for any new symptoms Prescriptions: Acetaminophen/Butalbital/Caf [Fioricet] 1 tab PO Q4 #10 tab Cephalexin [cephalexin] 500 mg PO TID #30 cap Referrals: Gonsalo Denise MD [Primary Care Provider] - Follow up with primary Dylan Begum MD [Staff Provider] - Follow up with primary Forms: [employer] (Greek)
[2017-09-20 18:04] VITALS: BP 142/71; PULSE 75
[2017-09-20 18:18] LABS: PH,URINE 7.5 (4.7-8.0); URINE BILIRUBIN NEGATIVE (NEGATIVE); URINE BLOOD SMALL (NEGATIVE); URINE GLUCOSE (UA) NEGATIVE (NEGATIVE); URINE LEUKOCYTE ESTERASE LARGE Leu/uL (NEGATIVE); URINE NITRATE NEGATIVE (NEGATIVE); URINE PROTEIN TRACE mg/dL (<30 mg/dL); URINE UROBILINOGEN 0.2 E.U./dL (<1 E.U./dL)
[2017-09-20 18:22] LABS: URINE APPEARANCE TURBID (CLEAR); URINE COLOR YELLOW (YELLOW)
--- NOTE | 2017-09-20 18:26 | CT ---
PROCEDURE: CT HEAD WITHOUT CONTRAST. HISTORY: headache COMPARISON: None available. TECHNIQUE: Axial computed tomography images were obtained through the head/brain without intravenous contrast. Radiation dose: Total exam DLP = 813.40 mGy-cm. This CT exam was performed using one or more of the following dose reduction techniques: Automated exposure control, adjustment of the mA and/or kV according to patient size, and/or use of iterative reconstruction technique. FINDINGS: HEMORRHAGE: No intracranial hemorrhage. BRAIN: No mass effect or edema. The cortes-white matter differentiation appears intact. Please note that MRI with diffusion imaging is more sensitive in the detection of acute ischemic event. VENTRICLES: No hydrocephalus. CALVARIUM: Unremarkable. PARANASAL SINUSES: Unremarkable as visualized. No significant inflammatory changes. MASTOID AIR CELLS: Unremarkable as visualized. No inflammatory changes. OTHER FINDINGS: None. IMPRESSION: No acute intracranial pathology identified.
[2017-09-20 18:43] LABS: URINE BACTERIA MANY (NEG)
--- NOTE | 2017-09-20 20:46 | CARD ---
APPROVED REPORT EKG Measurement Heart [id number] ME 130P50 [id number] <Conclusion> Normal sinus rhythm Normal ECG
== END 2017-09-20 19:00 | disposition home or self-care (01) ==
LOC: ED 14:25
DX: N39.0 Urinary tract infection, site not specified (principal); R07.9 Chest pain, unspecified; R51 Headache; E03.9 Hypothyroidism, unspecified
CPT/HCPCS: 70450; 80053; 81001; 82550; 83615; 83735; 84484; 85025; 85378; 85610; 85730; 87086; 93005; 96374; 96375; 99285; J1200; J1885; J2765

== ENCOUNTER 2018-06-09 21:20 | Emergency (ER) | payer MEDICAID ==
[2018-06-09 21:28] VITALS: BMI 29.9
--- NOTE | 2018-06-09 21:55 | ED PDOC ---
Arrival/HPI - General Historian: Patient - Critical Care Critical Care Minutes: 30 minutes - History of Present Illness Narrative History of Present Illness (Text): 06/09/18 21:51 43 year old female with a past medical history of GERD, hypothyroidism, nephrolithiasis, diverticulitis, and hypertension comes in today for left sided flank pain for the past couple of hours. Patient was at [facility] earlier today when she reported the left flank pain. Patient describes it as sharp in nature with radiation to the left lower quadrant. Patient denies any modifying factors. Patient denies any chest pain, shortness of breath, fevers, chills, nausea, vomiting, syncopal episodes, or any other complaints. Past medial history: gerd, hypothyroidism, nephrolithiasis, diverticulitis, and htn Medications: Losartan, Levothyroxine, Tramadol Surgical history: appendectomy, , thyroidectomy Social history: Denies tobacco, alcohol, or illicit drug use. Time/Duration: 4-6 hours Symptom Onset: Sudden Symptom Course: Unchanged Quality: Stabbing Severity Level: 6 Activities at Onset: Rest Context: Sitting <Toni Martinez - Last Filed: 06/10/18 01:47> Past Medical History - Provider Review Nursing Documentation Reviewed: Yes - Infectious Disease Hx of Infectious Diseases: None - Tetanus Immunization Tetanus Immunization: Unknown - Past Medical History Past Medical History: No Previous - Cardiac Hx Cardiac Disorders: No - Pulmonary Hx Respiratory Disorders: No - Neurological Hx Neurological Disorder: Yes Hx Headaches: Yes - HEENT Hx HEENT Disorder: No - Renal Hx Renal Disorder: Yes (RENAL COLIC) Hx Kidney Stones: Yes - Endocrine/Metabolic Hx Endocrine Disorders: Yes Hx Hypothyroidism: Yes (TOTAL THYROIDECTOMY) - Hematological/Oncological Hx Blood Disorders: No - Integumentary Hx Dermatological Disorder: No - Musculoskeletal/Rheumatological Hx Musculoskeletal Disorders: No Hx Falls: No - Gastrointestinal Hx Gastrointestinal Disorders: Yes (SIGMOID DIVERTICULITIS 03-29-16) Hx Gastroesophageal Reflux: Yes Other/Comment: CONSTIPATION - Genitourinary/Gynecological Hx Genitourinary Disorders: Yes (CHRONIC VAGINAL DISCHARGE) - Psychiatric Hx Psychophysiologic Disorder: No Hx Substance Use: No - Surgical History Hx Appendectomy: Yes Hx Section: Yes Hx Thyroidectomy: Yes - Anesthesia Hx Anesthesia: Yes Hx Anesthesia Reactions: No Hx Malignant Hyperthermia: No - Suicidal Assessment Feels Threatened In Home Enviroment: No <Jorge L Martinezn - Last Filed: 06/10/18 01:47> Family/Social History - Physician Review Nursing Documentation Reviewed: Yes Family/Social History: No Known Family HX Smoking Status: Never Smoked Hx Alcohol Use: No Hx Substance Use: No Hx Substance Use Treatment: No <Michelle,[place] - Last Filed: 06/10/18 01:47> Allergies/Home Meds <Toni Martinez - Last Filed: 06/10/18 01:47> <Moy Lopez - Last Filed: 06/10/18 03:49> Allergies/Adverse Reactions: Allergies No Known Allergies Allergy (Verified 06/09/18 21:28) Home Medications: Home Meds Medication Instructions Recorded Confirmed RX: Levothyroxine [Synthroid] 175 mcg PO DAILY 07/26/15 06/09/18 RX: Tramadol HCl [Ultram] 50 mg PO PRN PRN 06/08/17 06/09/18 Review of Systems - Physician Review All systems were reviewed & negative as marked: Yes - Review of Systems Constitutional: Normal. absent: Fatigue, Weight Change, Fevers Eyes: Normal. absent: Vision Changes, Photophobia ENT: Normal. absent: Hearing Changes, Rhinorrhea Respiratory: Normal. absent: SOB, Cough Cardiovascular: Normal. absent: Chest Pain, Syncope Gastrointestinal: Normal, Other. absent: Abdominal Pain, Vomiting Genitourinary Female: Dysuria. absent: Vaginal Bleeding, Vaginal Discharge Musculoskeletal: Normal, Back Pain. absent: Arthralgias Skin: Normal. absent: Rash, Other Neurological: Normal. absent: Headache, Dizziness, Facial Droop Endocrine: Normal. absent: Diaphoresis, Polyuria, Polydipsia Hemo/Lymphatic: Normal. absent: Adenopathy, Easy Bleeding Psychiatric: Normal. absent: Anxiety, Depression <Michelle,[place] - Last Filed: 06/10/18 01:47> Physical Exam Vital Signs Reviewed: Yes Vital Signs Temp Pulse Resp BP Pulse Ox 06/09/18 21:27 98.4 F 90 18 158/99 H 100 Temperature: Afebrile Blood Pressure: Hypertensive Pulse: Regular Respiratory Rate: Normal Appearance: Positive for: Well-Appearing, Non-Toxic, Comfortable Pain Distress: Moderate Mental Status: Positive for: Alert and Oriented X 3 - Systems Exam Head: Present: Atraumatic, Normocephalic. No: Abrasion Pupils: Present: PERRL. No: Sluggish Extroacular Muscles: Present: EOMI. No: Gaze Palsy Conjunctiva: Present: Normal. No: Injected Mouth: Present: Moist Mucous Membranes. No: Drooling, Normal Teeth Neck: Present: Normal Range of Motion. No: Meningeal Signs, JVD, Lymphadenopathy Respiratory/Chest: Present: Clear to Auscultation, Good Air Exchange, Respiratory Distress. No: Accessory Muscle Use, Wheezes Cardiovascular: Present: Regular Rate and Rhythm, Normal S1, S2 Abdomen: Present: Normal Bowel Sounds. No: Tenderness, Distention Back: Present: CVA Tenderness Upper Extremity: Present: Normal Inspection. No: Cyanosis, Edema Lower Extremity: Present: Normal Inspection. No: Edema Neurological: Present: CN II-XII Intact, Speech Normal. No: Normal Cerebellar Funct Skin: Present: Dry, Normal Color Psychiatric: Present: Oriented x 3, Normal Insight, Normal Concentration <Toni Martinez - Last Filed: 06/10/18 01:47> Vital Signs Temp Pulse Resp BP Pulse Ox 06/09/18 21:27 98.4 F 90 18 158/99 H 100 <Moy Lopez - Last Filed: 06/10/18 03:49> Medical Decision Making ED Course and Treatment: 06/09/18 21:59 43 year old female with a past medical history of GERD, hypothyroidism, nephrolithiasis, diverticulitis, and hypertension presents to emergency department for left sided flank pain. Plan: CBC CMP Urinanalysis Abdomen/pelvis ct w/o contrast Toradal 06/10/18 01:01 Ab/pelvis ct: 1mm nonobstructing calculus in mid pole of right kidney Pain level improved. Another 15mg IM Toradol given. Patient discharged with referral to Urology. Reassessment Condition: Re-examined - Critical Care Critical Care Minutes: 30 minutes - RAD Interpretation Radiology Orders: 06/09/18 21:49 ABDOMEN & PELVIS [ABD & PELVIS W/O PO OR IV CONT] [CT] Stat - Medication Orders Current Medication Orders: Ketorolac Tromethamine (Toradol) 15 mg IVP STAT STA Stop: 06/09/18 21:50 <Toni Martinez - Last Filed: 06/10/18 01:47> ED Course and Treatment: Impression: Pt seen and evaluated with medical radiation therapist. Aware and agree with plan. Pt, whose past medical history includes nephrolithiasis, GERD, hypothyroidism, diverticulitis, and hypertension, presented for sharp left flank pain for past few hours. Plan: -- CT Abdomen and Pelvis -- Labs -- Urinalysis -- Toradol -- Reassess and disposition Progress Notes: 06/10/18 00:25 CT Abdomen and Pelvis: LUNG BASES: The lung bases appear clear. No pleural effusions are seen. LIVER: Unremarkable. GALLBLADDER AND BILE DUCTS: The gallbladder is contracted. No radioopaque gallstones are seen. No biliary ductal dilatation is evident. PANCREAS: Unremarkable. SPLEEN: Unremarkable. ADRENAL GLANDS: Unremarkable. KIDNEYS, URETERS, AND BLADDER: There is a 1 mm nonobstructing calculus in mid pole of the right kidney. STOMACH AND BOWEL: Unremarkable appearance of the stomach and bowel. No evidence of bowel obstruction. No evidence suggesting enteritis or colitis. APPENDIX: No evidence of acute appendicitis on CT examination. PERITONEUM: No free fluid. No free air. LYMPH NODES: No lymphadenopathy is evident. REPRODUCTIVE: Unremarkable as visualized. VASCULATURE: No evidence of abdominal aortic aneurysm. BONES: No aggressive appearing osseous lesion. No acute osseous pathology evident. IMPRESSION: There is a 1 mm nonobstructing calculus in mid pole of the right kidney. No acute pathology. Electronically signed on Jun 10, 2018 12:21:57 AM EST by: Kailash Espino M.D., GUILLAUME Certified By [facility] Fellowship Trained MRI and CT Specialist - Lab Interpretations Lab Results: Lab Results 06/09/18 22:00: Urine Color Light yellow, Urine Appearance Clear, Urine pH 7.0, Ur Specific [place] 1.020, Urine Protein Negative, Urine Glucose (UA) Negative, Urine Ketones Negative, Urine Blood Trace-intact H, Urine Nitrate Negative, Urine Bilirubin Negative, Urine Urobilinogen 0.2, Ur Leukocyte Esterase Negat lars, Urine RBC 0 - 2, Urine WBC Negative, Ur Epithelial Cells 4 - 5, Urine Bacteria Neg - RAD Interpretation Radiology Orders: 06/09/18 21:49 ABDOMEN & PELVIS [ABD & PELVIS W/O PO OR IV CONT] [CT] Stat Can Reforming Machine Operator: Radiologist - Medication Orders Current Medication Orders: Discontinued Medications Ketorolac Tromethamine (Toradol) 15 mg IVP STAT STA Stop: 06/09/18 21:50 <Moy Lopez - Last Filed: 06/10/18 03:49> - PA / END FINDER FORMING DEPARTMENT / Resident Statement / has reviewed & agrees with the documentation as recorded. / has examined the patient and agrees with the treatment plan. - Scribe Statement The provider has reviewed the documentation as recorded by the Yanira Farfan Provider Scribe Attestation: All medical record entries made by the Scribe were at my direction and personally dictated by me. I have reviewed the chart and agree that the record accurately reflects my personal performance of the history, physical exam, medical decision making, and the department course for this patient. I have also personally directed, reviewed, and agree with the discharge instructions and disposition. <Moy Lopez - Last Filed: 06/10/18 03:49> Disposition/Present on Arrival - Present on Arrival Any Indicators Present on Arrival: No History of DVT/PE: No History of Uncontrolled Diabetes: No Urinary Catheter: No History of Decub. Ulcer: No History Surgical Site Infection Following: None - Disposition Have Diagnosis and Disposition been Completed?: Yes Disposition Time: 00:56 Patient Plan: Discharge <Toni Martinez - Last Filed: 06/10/18 01:47> <Moy Lopez - Last Filed: 06/10/18 03:49> - Disposition Diagnosis: Flank pain Diagnosis: (Ruled Out): Nephrolith Disposition: HOME/ ROUTINE Condition: FAIR Additional Instructions: 1.F/u with PMD within 2 days of discharge. 2. F/u with Urology within a week of discharge. 3. Return to hospital for any new or worsening symptoms. Referrals: Nikolai Bains MD [Staff Provider] - Follow up with primary Forms: [employer] (Nauruan)
[2018-06-09 22:20] LABS: URINE BILIRUBIN NEGATIVE (NEGATIVE); URINE BLOOD TRACE-INTACT (NEGATIVE); URINE GLUCOSE (UA) NEGATIVE (NEGATIVE); URINE LEUKOCYTE ESTERASE NEGATIVE Leu/uL (NEGATIVE); URINE PROTEIN NEGATIVE mg/dL (<30 mg/dL); URINE UROBILINOGEN 0.2 E.U./dL (<1 E.U./dL)
[2018-06-09 22:21] LABS: URINE APPEARANCE CLEAR (CLEAR); URINE COLOR LIGHT YELLOW (YELLOW)
[2018-06-09 22:26] LABS: URINE RBC 0 - 2 /hpf (0-2)
[2018-06-09 22:27] LABS: URINE BACTERIA NEG (NEG); URINE WBC NEGATIVE /hpf (0-6)
[2018-06-09 23:55] LABS: BASO # 0.03 K/mm3 (0.0-2.0); BASO % 0.4 % (0.0-3.0); EOS # 0.2 (0.0-0.7); EOS % 2.5 % (1.5-5.0); GRAN # 2.71 (1.4-6.5); GRAN % 39.7 % (50.0-68.0); HEMOGLOBIN 12.3 g/dL (12.0-16.0); LYMPH # 3.4 (1.2-3.4); LYMPH % 49.7 % (22.0-35.0); MEAN CORPUSCULAR HEMOGLOBIN 27.3 pg (25.0-35.0); MEAN CORPUSCULAR HGB CONC 33.3 g/dl (31.0-37.0); MEAN PLATELET VOLUME 8.5 fl (7.0-11.0); MONO # 0.5 (0.1-0.6); MONO % 7.7 % (1.0-6.0); RBC 4.5 10^6/uL (3.5-6.1); RED CELL DISTRIBUTION WIDTH 13.8 % (11.5-14.5); WHITE BLOOD COUNT 6.8 10^3/uL (4.5-11.0)
[2018-06-10] LABS: ALB/GLOB RATIO 1.2 (1.1-1.8); ALBUMIN 4.1 g/dL (3.0-4.8); ALT/SGPT 27 U/L (7-56); AST/SGOT 21 U/L (14-36); BLOOD UREA NITROGEN 16 mg/dL (7-21); CALCIUM 8.9 mg/dL (8.4-10.5); GFR NON-AFRICAN AMERICAN > 60
[2018-06-10 00:25] VITALS: RESP 17
[2018-06-10 01:12] VITALS: BP 112/61; PULSE 77; TEMP 98.1; O2SAT 100
--- NOTE | 2018-06-10 09:20 | CT ---
Date of service: 06/09/2018 PROCEDURE: CT Abdomen and Pelvis without intravenous contrast HISTORY: left flank pain COMPARISON: None. TECHNIQUE: CT scan of the abdomen and pelvis was performed without administration of intravenous contrast. Oral contrast was not administered. Coronal and sagittal reformatted images were obtained. . Radiation dose: Total exam DLP = 696.63 mGy-cm. This CT exam was performed using one or more of the following dose reduction techniques: Automated exposure control, adjustment of the mA and/or kV according to patient size, and/or use of iterative reconstruction technique. FINDINGS: LOWER THORAX: The visualized lungs are clear. LIVER: Normal in size. No intrahepatic ductal dilatation. GALLBLADDER AND BILE DUCTS: No calcified gallstones. No biliary dilatation PANCREAS: Normal in size. No ductal dilatation. SPLEEN: Normal in size. ADRENALS: Normal in size. No discrete nodule. KIDNEYS AND URETERS: Normal in size. There is a 3 mm nonobstructing stone in the upper pole of the right kidney. No hydronephrosis. VASCULATURE: No aortic aneurysm. No aortic atherosclerotic calcification or mural plaque present. BOWEL: The small bowel loops are normal in caliber. There is large amount of stool in the ascending and transverse colon and fecalization of distal small bowel contents. No bowel dilatation or wall thickening. No bowel obstruction. APPENDIX: Normal appendix. PERITONEUM: No free fluid. No free air. LYMPH NODES: No enlarged lymph nodes. BLADDER: Well distended and grossly normal in appearance. REPRODUCTIVE: The uterus is normal in size BONES: No acute fracture. OTHER FINDINGS: None. IMPRESSION: No acute abdominal or pelvic abnormality. 3 mm nonobstructing stone in the upper pole of the right kidney.
== END 2018-06-10 01:12 | disposition home or self-care (01) ==
LOC: ED 21:20
DX: R10.9 Unspecified abdominal pain (principal); I10 Essential (primary) hypertension; K21.9 Gastro-esophageal reflux disease without esophagitis; N20.0 Calculus of kidney
CPT/HCPCS: 74176; 80053; 81001; 85025; 96372; 99291; J1885

== ENCOUNTER 2018-10-19 15:26 | Emergency (ER) | payer MEDICAID ==
[2018-10-19 15:27] VITALS: BMI 29.9
[2018-10-19 15:41] VITALS: RESP 18
[2018-10-19 15:44] VITALS: TEMP 97.8
--- NOTE | 2018-10-19 16:02 | ED PDOC ---
Arrival/HPI - General Chief Complaint: Chest Pain Time Seen by Provider: 10/19/18 15:36 Historian: Patient - History of Present Illness Narrative History of Present Illness (Text): 10/19/18 16:03 43 year old female with a past medical history of GERD, hypothyroidism, nephrolithiasis, diverticulitis, and hypertension, who presents to the emergency department complaining of left sided chest pain and shortness of breath for the past 3 hours. She states she was just waiting in the car for her daughter when the pain began. Patient notes associated dizziness and nausea. Patient denies any fevers, chills, headache, dizziness, dyspnea on exertion, cough, diaphoresis, abdominal pain, vomiting, diarrhea, back pain, neck pain, or any other complaint. PMD: Dr. Gonsalo Denise Surgical Coordinator: Dr. 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 ( ) Past Medical History - Provider Review Nursing Documentation Reviewed: Yes - Infectious Disease Hx of Infectious Diseases: None - Tetanus Immunization Tetanus Immunization: Unknown - Past Medical History Past Medical History: No Previous - Cardiac Hx Cardiac Disorders: Yes Hx Hypertension: Yes - Pulmonary Hx Respiratory Disorders: No - Neurological Hx Neurological Disorder: Yes Hx Headaches: Yes - HEENT Hx HEENT Disorder: No - Renal Hx Renal Disorder: Yes (RENAL COLIC) Hx Kidney Stones: Yes - Endocrine/Metabolic Hx Endocrine Disorders: Yes Hx Hypothyroidism: Yes (TOTAL THYROIDECTOMY) - Hematological/Oncological Hx Blood Disorders: No - Integumentary Hx Dermatological Disorder: No - Musculoskeletal/Rheumatological Hx Musculoskeletal Disorders: No Hx Falls: No - Gastrointestinal Hx Gastrointestinal Disorders: Yes (SIGMOID DIVERTICULITIS 03-29-16) Hx Gastroesophageal Reflux: Yes Other/Comment: CONSTIPATION - Genitourinary/Gynecological Hx Genitourinary Disorders: Yes (CHRONIC VAGINAL DISCHARGE) - Psychiatric Hx Psychophysiologic Disorder: No Hx Substance Use: No - Surgical History Hx Appendectomy: Yes Hx Section: Yes Hx Thyroidectomy: Yes - Anesthesia Hx Anesthesia: Yes Hx Anesthesia Reactions: No Hx Malignant Hyperthermia: No - Suicidal Assessment Feels Threatened In Home Enviroment: No Family/Social History - Physician Review Nursing Documentation Reviewed: Yes Family/Social History: No Known Family HX Smoking Status: Never Smoked Hx Alcohol Use: No Hx Substance Use: No Hx Substance Use Treatment: No Allergies/Home Meds Allergies/Adverse Reactions: Allergies No Known Allergies Allergy (Verified 06/09/18 21:28) Home Medications: Home Meds Medication Instructions Recorded Confirmed Levothyroxine [Synthroid] 175 mcg PO DAILY 07/26/15 10/19/18 Review of Systems - Physician Review All systems were reviewed & negative as marked: Yes - Review of Systems Constitutional: absent: Fevers Respiratory: SOB. absent: Cough Cardiovascular: Chest Pain Gastrointestinal: Nausea. absent: Abdominal Pain, Diarrhea, Vomiting Musculoskeletal: absent: Back Pain, Neck Pain Neurological: Dizziness. absent: Headache Physical Exam Vital Signs Reviewed: Yes Vital Signs Temp Pulse Resp BP Pulse Ox 10/19/18 15:36 97.8 F 89 18 149/93 H 100 Temperature: Afebrile Blood Pressure: Hypertensive Pulse: Regular Respiratory Rate: Normal Appearance: Positive for: Well-Appearing, Non-Toxic, Comfortable Pain Distress: None Mental Status: Positive for: Alert and Oriented X 3 - Systems Exam Head: Present: Atraumatic, Normocephalic Pupils: Present: PERRL Extroacular Muscles: Present: EOMI Conjunctiva: Present: Normal Mouth: Present: Moist Mucous Membranes Neck: Present: Normal Range of Motion Respiratory/Chest: Present: Clear to Auscultation, Good Air Exchange, Tender to Palpation (reproducible mid sternum tenderness). No: Respiratory Distress, Accessory Muscle Use Cardiovascular: Present: Regular Rate and Rhythm, Normal S1, S2. No: Murmurs Abdomen: No: Tenderness, Distention, Peritoneal Signs Back: Present: Normal Inspection Upper Extremity: Present: Normal Inspection. No: Cyanosis, Edema Lower Extremity: Present: Normal Inspection. No: Edema Neurological: Present: GCS=15, CN II-XII Intact, Speech Normal Skin: Present: Warm, Dry, Normal Color. No: Rashes Psychiatric: Present: Alert, Oriented x 3, Normal Insight, Normal Concentration Medical Decision Making ED Course and Treatment: 10/19/18 16:11 Impression: 43 year old female who presents to the emergency department complaining of left sided chest pain and shortness of breath. Differential Diagnosis included but are not limited to: ACS Thyroid storm Plan: -- Labs -- Cardiac Enzymes -- Chest X-ray -- Aspirin -- Toradol -- Urinalysis -- Reassess and disposition Prior Visits: Notes and results from previous visits were reviewed. Progress Notes: 10/19/18 18:01 Labs reviewed with negative troponin, but elevated T4 and low TSH consistent with hyperthyroidism. Patient and family member counseled on overmedicating herself and monitoring her symptoms for hyperthyroidism. 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 Patient's daughter in law at the bedside explaining updated findings and she demonstrates understanding. She is stable for discharge. - Lab Interpretations Lab Results: 10/19/18 16:34 10/19/18 16:34 Lab Results 10/19/18 16:34: Beta HCG, Quant < 2.39 10/19/18 16:34: Free T4 2.44 H, TSH 3rd Generation 0.09 L 10/19/18 16:34: Sodium 139, Potassium 4.3, Chloride 106, Carbon Dioxide 22, Anion Gap 16, BUN 8, Creatinine 0.6 L, Est GFR ( Amer) > 60, Est GFR (Non-Af Amer) > 60, Random Glucose 86, Calcium 9.2, Magnesium 2.0, Total Bilirubin 0.4, AST 16, ALT 6 L, Alkaline Phosphatase 96, Troponin I < 0.01, Total Protein 8.2, Albumin 4.5, Globulin 3.7, Albumin/Globulin Ratio 1.2 10/19/18 16:34: WBC 5.3 D, RBC 4.61, Hgb 13.0, Hct 38.8, MCV 84.2, MCH 28.2, MCHC 33.5, RDW 13.7, Plt Count 239, MPV 9.1, Neut % (Auto) 34.9 L, Lymph % (Auto) 55.5 H, [place] % (Auto) 7.5 H, Eos % (Auto) 1.5, Baso % (Auto) 0.6, Lymph # (Auto) 2.9, [place] # (Auto) 0.4, Eos # (Auto) 0.1, Baso # (Auto) 0.03, Absolute Neuts (auto) 1.85 I have reviewed the lab results: Yes - RAD Interpretation Radiology Orders: 10/19/18 15:55 CHEST PORTABLE [RAD] Stat Record Keeper: Radiologist - EKG Interpretation EKG Interpretation (Text): 10/19/18 16:17 EKG performed at 15:40 reviewed by me, shows: NSR at [address] elevations and no T wave inversions. Interpreted by ED Physician: Yes Type: 12 lead EKG - Medication Orders Current Medication Orders: Aspirin (Aspirin) 325 mg PO STAT STA Stop: 10/19/18 15:56 Ketorolac Tromethamine (Toradol) 30 mg IVP STAT STA Stop: 10/19/18 15:59 Discontinued Medications Aspirin (Aspirin) 325 mg PO STAT STA Stop: 10/19/18 15:56 Last Admin: 10/19/18 17:45 Dose: 325 mg Diazepam (Valium) 5 mg PO ONCE ONE; Protocol Stop: 10/19/18 17:16 Last Admin: 10/19/18 17:48 Dose: 5 mg Ketorolac Tromethamine (Toradol) 30 mg IVP STAT STA Stop: 10/19/18 15:59 Last Admin: 10/19/18 17:48 Dose: 30 mg MAR Pain Assessment Document 10/19/18 17:48 BB (Rec: 10/19/18 17:48 BB [id number]) Pain Reassessment Is this a pain reassessment? No Sleep Is patient sleeping during reassessment? No Presence of Pain Presence of Pain Yes Pain Scale Used Protocol: PSCALES Pain Scale Used Numeric Location Pain Location Body Site Chest Description Description Constant Intensity of Pain at present 8 Pain Behavior Grasping Site Rubbing Site Restlessness Facial Grimacing IVP Administration Document 10/19/18 17:48 BB (Rec: 10/19/18 17:48 BB [id number]) Charges for Administration # of IVP Administrations 1 - Scribe Statement The provider has reviewed the documentation as recorded by the Yanira Day Provider Scribe Attestation: All medical record entries made by the Scribdenise were at my direction and personally dictated by me. I have reviewed the chart and agree that the record accurately reflects my personal performance of the history, physical exam, medical decision making, and the department course for this patient. I have also personally directed, reviewed, and agree with the discharge instructions and disposition. Disposition/Present on Arrival - Present on Arrival Any Indicators Present on Arrival: No History of DVT/PE: No History of Uncontrolled Diabetes: No Urinary Catheter: No History of Decub. Ulcer: No History Surgical Site Infection Following: None - Disposition Have Diagnosis and Disposition been Completed?: Yes Diagnosis: Hyperthyroidism, Chest pain Disposition: HOME/ ROUTINE Disposition Time: 18:10 Patient Plan: Discharge Condition: STABLE Discharge Instructions (ExitCare): Chest Pain (ED), Hyperthyroidism (Overactive Thyroid) Print Language: BAHAMIAN Additional Instructions: All medical record entries made by the Scribe were at my direction and personally dictated by me. I have reviewed the chart and agree that the record accurately reflects my personal performance of the history, physical exam, medical decision making, and the department course for this patient. I have also personally directed, reviewed, and agree with the discharge instructions and disposition. 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
[2018-10-19 16:37] LABS: BASO # 0.03 K/mm3 (0.0-2.0); BASO % 0.6 % (0.0-3.0); EOS # 0.1 (0.0-0.7); EOS % 1.5 % (1.5-5.0); LYMPH # 2.9 (1.2-3.4); LYMPH % 55.5 % (22.0-35.0); MEAN CELL VOLUME 84.2 fl (80.0-105.0); MEAN CORPUSCULAR HEMOGLOBIN 28.2 pg (25.0-35.0); MEAN CORPUSCULAR HGB CONC 33.5 g/dl (31.0-37.0); MEAN PLATELET VOLUME 9.1 fl (7.0-11.0); MONO # 0.4 (0.1-0.6); MONO % 7.5 % (1.0-6.0); RBC 4.61 10^6/uL (3.5-6.1); RED CELL DISTRIBUTION WIDTH 13.7 % (11.5-14.5); WHITE BLOOD COUNT 5.3 10^3/uL (4.5-11.0)
[2018-10-19 16:49] LABS: ALB/GLOB RATIO 1.2 (1.1-1.8); ALBUMIN 4.5 g/dL (3.0-4.8); ALT/SGPT 6 U/L (7-56); AST/SGOT 16 U/L (14-36); BLOOD UREA NITROGEN 8 mg/dL (7-21); CALCIUM 9.2 mg/dL (8.4-10.5); GFR NON-AFRICAN AMERICAN > 60
[2018-10-19 17:00] LABS: TROPONIN I < 0.01 ng/mL
[2018-10-19 17:09] LABS: FREE T4 2.44 ng/dL (0.78-2.19)
[2018-10-19 18:27] VITALS: BP 142/87; PULSE 83; O2SAT 99
--- NOTE | 2018-10-19 18:30 | RAD ---
Date of service: 10/19/2018 HISTORY: Chest pain. COMPARISON: 04/13/2017 FINDINGS: LUNGS: No active pulmonary disease. PLEURA: No significant pleural effusion identified, no pneumothorax apparent. CARDIOVASCULAR: No atherosclerotic calcification present No radiographic findings to suggest acute or significant cardiovascular disease. OSSEOUS STRUCTURES: No significant abnormalities. VISUALIZED UPPER ABDOMEN: Normal. OTHER FINDINGS: None. IMPRESSION: No active disease. No significant interval change compared to the prior examination(s).
--- NOTE | 2018-10-19 22:16 | CARD ---
APPROVED REPORT Date of service: 10/19/2018 EKG Measurement Heart [id number] <Conclusion> Normal sinus rhythm Normal ECG
== END 2018-10-19 18:27 | disposition home or self-care (01) ==
LOC: ED 15:26
DX: E05.90 Thyrotoxicosis, unspecified without thyrotoxic crisis or storm (principal); R07.9 Chest pain, unspecified; I10 Essential (primary) hypertension
CPT/HCPCS: 71045; 80053; 81025; 83735; 84439; 84443; 84484; 84702; 85025; 93005; 96374; 99284; J1885

== ENCOUNTER 2018-10-23 08:41 | Outpatient (CLI) | payer MEDICAID | END 2018-10-23 08:42 | disposition home or self-care (01) | LOC: RAD 08:41 ==